=== PATIENT | male | born 1980 | race Caucasian/White ===

== ENCOUNTER 2020-12-26 08:00 | Outpatient (CLI) | payer BC, OTHER | END 2020-12-26 23:59 | disposition home or self-care (01) | LOC: LAB.R 08:00 | PROVIDERS: ATTEND Family Medicine | DX: L02.31 Cutaneous abscess of buttock (principal) | CPT/HCPCS: 81599; 87070; 87075; 87076; 87205 ==

== ENCOUNTER 2021-05-01 09:51 | Day surgery (SDC) | payer BC ==
[~2021-05-01 09:51] MED LIST: ceFAZolin 2 GM/50 ML 2 GM/50 ML BAG IV ONE
[2021-05-01] MEDS ORDERED: LACTATED RINGERS 1,000 ML IV ONE ×2 (10:17→16:00)
[2021-05-01] MEDS ORDERED: BUPIVACAINE 0.5% PF 30 ML VIAL ONE (10:41)
--- NOTE | 2021-05-01 11:03 | ANESTHESIA ---
Pre-Anesthesia VS, & Labs - Diagnosis pilonidal cyst - Procedure pilonidal cystectomy Vital Signs: Temp Pulse Resp BP Pulse Ox 36.2 C L 61 18 127/85 H 100 05/01/21 10:04 05/01/21 10:04 05/01/21 10:04 05/01/21 10:04 05/01/21 10:04 Height: 5 ft 7 in Weight (kg): 77.6 kg Body Mass Index: 26.8 BMI Classification: Overweight - NPO >8 hours Home Medications and Allergies No Known Home Medications 01/27/15 Allergies/Adverse Reactions: Allergies Allergy/AdvReac Type Severity Reaction Status Date / Time No Known Drug Allergies Allergy Verified 04/28/21 14:03 Anes History & Medical History - Anesthetic History Anesthesia Complications: reports: No previous complications Family history of Anesthesia Complications: Denies Family history of Malignant Hyperthermia: Denies - Medical History Cardiovascular: reports: None Pulmonary: reports: None Gastrointestinal: reports: None Urinary: reports: None Neuro: reports: None Musculoskeletal: reports: None Endocrine/Autoimmune: reports: None Skin: reports: None Smoking Status: Never smoker - Surgical History General: reports: Other Eyes Ears Nose Throat (EENT): reports: Other Orthopedic: reports: Other (bicep repair) Exam General: Alert, Oriented x3, Cooperative Dental: WNL Mouth Opening: Greater than 4 Fingerbreadths Neck Mobility: Normal Mallampati classification: I Thyromental Distance: 4-6 cm Respiratory: Lungs clear Cardiovascular: Regular rate Plan Anesthesia Type: General Consent for Procedure(s) Verified and Reviewed: Yes Code Status: Attempt Resuscitation ASA classification: 1-Healthy patient Is this case an emergency?: No
[2021-05-01] MEDS ORDERED: MORPHINE 2 MG/ML CARPUJECT IVP PRN (11:08)
[2021-05-01] MEDS ORDERED: fentaNYL 100 MCG/2 ML VIAL IVP PRN (11:08)
[2021-05-01] MEDS ORDERED: ePHEDrine 50 MG/ML VIAL IVP PRN (11:08)
[2021-05-01] MEDS ORDERED: HYDROmorphone 0.5 MG/0.5 ML SYRINGE IVP PRN ×3 (11:08→14:14)
[2021-05-01] MEDS ORDERED: METOCLOPRAMIDE 10 MG/2 ML VIAL IVP PRN (11:08)
[2021-05-01] MEDS ORDERED: ONDANSETRON 4 MG/2 ML VIAL IVP PRN ×3 (11:08→14:14)
[2021-05-01] MEDS ORDERED: NALOXONE 0.4 MG/ML VIAL IVP PRN (11:08)
[2021-05-01] MEDS ORDERED: ATROPINE ABBOJECT 1 MG/10 ML SYRINGE IVP PRN (11:08)
[2021-05-01] MEDS ORDERED: LACTATED RINGERS 1,000 ML IV SCH (12:00)
[2021-05-01] MEDS ORDERED: MIDAZOLAM 2 MG/2 ML VIAL ONE (12:10)
[2021-05-01] MEDS ORDERED: fentaNYL 100 MCG/2 ML VIAL ONE (12:10)
[2021-05-01] MEDS ORDERED: ROCURONIUM 50 MG/5 ML VIAL ONE (12:12)
[2021-05-01] MEDS ORDERED: ONDANSETRON 4 MG/2 ML VIAL ONE (12:12)
[2021-05-01] MEDS ORDERED: PROPOFOL 200 MG/20 ML VIAL IVP ONE (12:12)
[2021-05-01] MEDS ORDERED: LIDOCAINE-MPF 2% 5 ML VIAL ONE (12:12)
[2021-05-01] MEDS ORDERED: BUPIVACAINE 0.5% PF 30 ML VIAL INFIL ONE (13:45)
[2021-05-01] MEDS ORDERED: KETOROLAC 30 MG/ML VIAL ONE (13:50)
--- NOTE | 2021-05-01 13:59 | OPERATIVE REPORT ---
Operative Report - General Procedure Date: 05/01/21 Planned Procedure: Pilonidal cystectomy. Pre-Op Diagnosis: Pilonidal cyst with associated abscess. Procedure Performed: Pilonidal cystectomy. Post Op Diagnosis: Pilonidal cyst with associated abscess. - Procedure Note Primary Surgeon: Eduin Zendejas MD Anesthesia Provider: Mandie Gordillo CRNA Anesthesia Technique: General ET tube, Local (30 mL of half percent Marcaine) IV Fluids (mL): 1,100 Estimated Blood Loss (mL): 20 Drain/Tube Type: Other (None.) Indications: As above. Findings: As above. Complications: None. - Other Other Information/Narrative: After verbal and written informed consent was obtained detailing the operation, the alternatives the operation including no operation, risks of infection, bleeding requiring transfusion with its risks, nerve injury, and and after I met with the patient confirming the surgery and the site of surgery, the patient was brought to the operative suite and placed supine on the operating table. Great care was taken to avoid pressure points to prevent pressure necrosis or nerve injury. Monitoring devices were applied along with TEDs and pneumatic compression stockings (to prevent DVT). The patient received preoperative antibiotics for surgical prophylaxis. Mandie Gordillo sedated and anesthetized the patient for the entire procedure. The patient was prepped and draped in the usual sterile manner. A "time in" then confirmed that the patient was identified with 3 identifiers (name, date, and medical record number), the history and physical was updated and in the chart, the signed consent confirming the procedure was in the chart, the patient was in the correct position, the aforementioned prophylactic measures were in place or given, we had the correct personnel and equipment to complete the procedure and that anesthesia and the surgical team were given an opportunity to express any concerns. With the agreement of everyone in the room we proceeded with the operation. The patient had been placed in a modified jackknife position. The 3 pilonidal pits were probed with a wire probe and the upper pit went superiorly for approximately 2 cm. The middle pit went almost directly into the sacrum. The inferior pit was attached to the abscess site on the patient's left buttocks at the 10 o'clock position. An elliptical incision was made encompassing the 3 pits and dissection was carried out down to the sacrum using primarily Bovie electrocautery. The incision had to be lengthened superiorly to get the entire cyst associated with the superiormost pit. As each cyst was excised there was a significant amount of hair noted in each. The most amount of hair was reserved for the inferior most pit which went out to the left buttocks. A 4 mm punch biopsy was used to excise the highly inflamed skin at the drainage site on the left buttocks. A significant amount of hair was removed from this once the skin "plug" was removed. In each case the entire cyst going down to the sacrum was excised completely. Hemostasis was obtained using Bovie electrocautery. Lateral flaps were raised using Bovie electrocautery. Of note 2 layers were closed and the associated abscess was unroofed qualifying this as a complex pilonidal cyst. The subcutaneous tissues were approximated using 0 Vicryl in a [id number] fashion. Half inch gauze was packed into the skin site on the left buttocks and pulled into the inferior aspect of the wound. Great care was taken not to involve the packing with the suture. The skin was then approximated using interrupted 2-0 nylon mattress sutures. A dressing was then applied. At this point a timeout was performed that confirmed that all counts were correct x2, the procedure that was performed, the blood loss, the IV fluids administered, the patient's condition, and any concerns of the operating team had. Having tolerated the procedure well, the patient was taken recovery room in good and stable condition. The plan is for outpatient discharge when the patient is adequately recovered. This document was created in part using voice recognition technology. Because of the inherent limitations of the system, occasional same sounding word substitutions and grammatical errors do occur and persist despite proofreading. Please read this document for content. ICD-10 L05.01 CPT 66845
[2021-05-01] MEDS ORDERED: LACTATED RINGERS 900 ML IV ONE (14:01)
[2021-05-01] MEDS ORDERED: HYDROcod/ACETAM 5/325 MG TABLET PO PRN ×2 (14:13→14:14)
--- NOTE | 2021-05-01 15:20 | ANESTHESIA POST OP EVALUATION ---
Anesthesia Post Eval - Post Anesthesia Eval Vitals: Last Vital Signs Temp 13775 C H 05/01/21 15:05 Pulse 60 05/01/21 15:05 Resp 16 05/01/21 15:05 BP 109/73 05/01/21 15:05 Pulse Ox 98 05/01/21 15:05 CV Function Including HR & BP: Stable Pain Control: Satisfactory Nausea & Vomiting: Negative Mental Status: Baseline Respiratory Status: Airway Patent Hydration Status: Satisfactory Anesthesia Complications: None
[2021-05-01 17:51] VITALS: BP 126/77
== END 2021-05-01 09:52 | disposition home or self-care (01) ==
LOC: SDS 09:51
PROVIDERS: ATTEND Surgery
PROC: 0JB90ZZ Excision of Buttock Subcutaneous Tissue and Fascia, Open Approach (ICD-10-PCS; principal; 2021-05-01 11:00)
DX: L05.01 Pilonidal cyst with abscess (principal); Z87.891 Personal history of nicotine dependence
CPT/HCPCS: 11772; J0690; J7120

== ENCOUNTER 2021-05-05 17:16 | Outpatient (CLI) | payer BC ==
--- NOTE | 2021-05-05 23:19 | XRAY Report ---
PROCEDURE: Tib/Fib RT INDICATIONS: HEMATOMA ON RIGHT DISTAL TIBIA TECHNIQUE: 2 views of the tibia and fibula were acquired. COMPARISON: None. FINDINGS: Bones: No acute fractures or dislocations. No suspicious bony lesions. Soft tissues: No suspicious soft tissue calcifications or masses. IMPRESSION: No acute osseous abnormality. If there is clinical concern or persistent symptoms, additional imaging such as repeat radiographs or advanced imaging (e.g. CT, MRI) may be helpful for further evaluation. Reviewed by: Raymon Marina MD on 05/05/2021 11:18 PM PDT Approved by: Raymon Marina MD on 05/05/2021 11:18 PM PDT Station ID: [id number]
== END 2021-05-05 23:59 | disposition home or self-care (01) ==
LOC: DI.N 17:16
PROVIDERS: ATTEND Physician Assistant Medical
DX: S80.11XA Contusion of right lower leg, initial encounter (principal)